=== PATIENT | female | born 1960 | race Caucasian/White ===

== ENCOUNTER 2019-07-18 08:03 | Day surgery (SDC) | payer BC, OTHER ==
[~2019-07-18 08:03] MED LIST: Cefuroxime 10 MG/ML SYRINGE EYERT SCH; Lidocaine 1% PF 2 ML SDV INJECT SCH; Pilocarpine 4% Ophth Soln 15 ML Bot EYERT SCH
[2019-07-18] MEDS: Polymyxin B/Trimethoprim 10 ML Bottle EYERT SCH ×3 (08:14→09:44)
[2019-07-18] MEDS: Brimonidine 0.2% Ophth Soln 15 ML Bottle EYERT SCH ×3 (08:19→09:44)
[2019-07-18] MEDS: Phenylephrine 2.5% Ophth Soln 2 ML Bot EYERT SCH ×5 (08:24→09:22)
--- NOTE | 2019-07-18 08:28 | PCM.PREANE ---
Preanesthetic Assessment - Anesthesia/Transfusion/Family Hx Anesthesia History: Prior Anesthesia Without Reaction Family History of Anesthesia Reaction: No - Review of Systems General: No Symptoms Pulmonary: No Symptoms Cardiovascular: No Symptoms (Elevated cholesterol, no medications, control with diet/exercise), Other (>4 MET capacity, Exercise 6xweek, fitness classes. ) Gastrointestinal: No Symptoms Neurological: No Symptoms Other: Reports: None (Takes spironolactone for Adult Acne. ) - Physical Assessment NPO Status Date: 07/17/19 NPO Status Time: 22:00 Vital Signs: Last Vital Signs Temp 36.3 C 07/18/19 08:07 Pulse 68 07/18/19 08:07 Resp 16 07/18/19 08:07 BP 127/72 07/18/19 08:07 Pulse Ox 99 07/18/19 08:07 Height: 1.59 m Weight: 52.163 kg ASA Class: 2 Mental Status: Alert & Oriented x3 Airway Class: Mallampati = 2 Dentition: Reports: Normal Dentition Thyro-Mental Finger Breadths: 2 Mouth Opening Finger Breadths: 3 ROM/Head Extension: Full Lungs: Clear to Auscultation, Normal Respiratory Effort Cardiovascular: Regular Rate, Regular Rhythm - Allergies Allergies/Adverse Reactions: Allergies Allergy/AdvReac Type Severity Reaction Status Date / Time risedronate sodium Allergy Rash Verified 07/17/19 10:54 [From Actonel] - Acknowledgements Anesthesia Type Planned: MAC Pt an Appropriate Candidate for the Planned Anesthesia: Yes Alternatives and Risks of Anesthesia Discussed w Pt/Guardian: Yes Pt/Guardian Understands and Agrees with Anesthesia Plan: Yes PreAnesthesia Questionnaire - HOME MEDS Home Medications: Home Meds Spironolactone [Aldactone] 100 mg PO DAILY 07/17/19 [History] - CURRENT (IN HOUSE) MEDS Current Meds: Current Medications Brimonidine Tartrate (Brimonidine Tartrate 0.2% Ophth Soln) 0 ml EYERT ASDIRECTED TATA Stop: 07/18/19 18:00 Last Admin: 07/18/19 08:19 Dose: 1 drop Cefuroxime Sodium (Zinacef) 0 mg EYERT ASDIRECTED ATTA Stop: 07/18/19 18:00 Lidocaine HCl (Xylocaine-Mpf 1%) 0 ml INJECT ASDIRECTED TATA Stop: 07/18/19 18:00 Phenylephrine HCl (Dae-Synephrine 2.5% Ophth Soln) 0 ml EYERT ASDIRECTED TATA Stop: 07/18/19 18:00 Last Admin: 07/18/19 08:24 Dose: 1 drop Pilocarpine HCl (Pilocar 4% Ophth Soln) 0 ml EYERT ASDIRECTED TATA Stop: 07/18/19 18:00 Polymyxin/Trimethoprim Sulfate (Polytrim Ophth Soln) 0 ml EYERT ASDIRECTED TATA Stop: 07/18/19 18:00 Last Admin: 07/18/19 08:14 Dose: 1 drop Tetracaine HCl (Tetracaine 0.5% Steri-Unit Shelbie) 0 ml EYERT ASDIRECTED TATA Stop: 07/18/19 18:00 Tropicamide (Mydriacyl 1% Ophth Soln) 0 ml EYERT ASDIRECTED TATA Stop: 07/18/19 18:00
[2019-07-18] MEDS: Tropicamide 1% Ophth Soln 15 ML Bottle EYERT SCH ×4 (08:29→09:10)
[2019-07-18] MEDS: Tetracaine HCl/PF 0.5% 4 ML Bottle EYERT SCH ×4 (09:16→09:32)
--- NOTE | 2019-07-18 09:31 | PCM48HPAN ---
Post Anesthesia Note - EVALUATION WITHIN 48HRS OF ANESTHETIC Vital Signs in Normal Range: Yes Patient Participated in Evaluation: Yes Respiratory Function Stable: Yes Airway Patent: Yes Cardiovascular Function Stable: Yes Hydration Status Stable: Yes Pain Control Satisfactory: Yes Nausea and Vomiting Control Satisfactory: Yes Mental Status Recovered: Yes Vital Signs: Last Vital Signs Temp 36.3 C 07/18/19 08:07 Pulse 68 07/18/19 08:07 Resp 16 07/18/19 08:07 BP 127/72 07/18/19 08:07 Pulse Ox 99 07/18/19 08:07
== END 2019-07-18 09:55 | disposition home or self-care (01) ==
LOC: JD.SDS 08:03
PROVIDERS: ATTEND Ophthalmology
DX: H25.813 Combined forms of age-related cataract, bilateral (principal); H16.223 Keratoconjunctivitis sicca, not specified as Sjogren's, bilateral; H16.103 Unspecified superficial keratitis, bilateral; H02.831 Dermatochalasis of right upper eyelid; H02.834 Dermatochalasis of left upper eyelid; E78.00 Pure hypercholesterolemia, unspecified; Z88.8 Allergy status to other drugs, medicaments and biological substances; Z79.899 Other long term (current) drug therapy
CPT/HCPCS: 66984; J0697; J2001; V2632